=== PATIENT | female | born 1990 | race Hispanic/Latino ===

== ENCOUNTER 2019-06-20 01:43 | Day surgery (SDC) | payer OTHER ==
[2019-06-20 02:11] VITALS: BP 140/65; TEMP 98.4; BMI 34.2
--- NOTE | 2019-06-20 02:54 | PDOC.FPROB ---
FMR OB H&P: HPI - History of Present Illness Chief Complaint: occasional contractions and scant vaginal bleeding Indentification: 29yo G1 History of Present Illness: Ms. Fredo So is a 29yo who presents to L&D @ 37.5wks EGA by LMP/21.3wk sono (ERIKA 07/06/19) for occasional, irregular contractions and blood on the toilet paper when she wipes. These symptoms started roughly 6 hours ago. She denies trauma, significant vaginal bleeding, increase in vaginal discharge, dysuria, or loss of fluid. She endorses normal movement. 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 - Surgical History Sx History: None - Social History Social History: Denies alcohol, tobacco, or illicit drug use - Family History Family History: Non-contributory FMR OB H&P: Medications - Current Home Medications: Medication Instructions Recorded Confirmed Type Pnv No.95/Ferrous Fum/Folic AC 1 tab PO DAILY 06/20/19 06/20/19 History [ Vitamin Tablet] Allergies/Adverse Reactions: Allergies Allergy/AdvReac Type Severity Reaction Status Date / Time No Known Allergies Allergy Verified 06/20/19 02:13 FMR OB H&P: ROS - Review of Systems General: denies: fever/chills, weight/appetite/sleep changes, fatigue, recent trauma Eyes: denies: eye pain, vision changes, double vision ENT: denies: nasal congestion, rhinorrhea, sore throat Cardiovascular: denies: chest pain, palpitation, edema Respiratory: denies: cough, congestion Gastrointestinal: denies: abdominal pain, indigestion, nausea, vomiting, diarrhea, constipation Genitourinary (Female): denies: incontinence, dysuria, hematuria Musculoskeletal: denies: pain, stiffness Neurologic: denies: numbness, syncope, seizures Integumentary: denies: itching, rash, lesions FMR OB H&P: Vital Signs - Maternal Vital signs: Vital Signs - First Documented Temp Pulse Resp BP 98.4 F 67 20 140/65 06/20/19 02:04 06/20/19 02:04 06/20/19 02:04 06/20/19 02:04 - Heart Tones Baseline: 130 Variability: moderate Acceleration: present Deceleration: absent FMR OB H&P: Physical Exam - Physical Exam General: NAD, awake, alert and oriented HEENT: normocephalic and atraumatic, PERRLA, EOMI, MMM, conjunctiva clear, grossly normal vision, grossly normal hearing Neck: supple, trachea midline Heart: RRR, normal S1/S2, no murmurs/rubs/gallops, pulses present General: CTAB, no respiratory distress, good air movement, no rales/rhonchi, no wheezing Abdomen: soft, gravid, non-tender Musculoskeletal: pulses present, FROM in all four extremities Neurological: sensation to pain,touch and proprioception grossly normal Skin: no rash, good tugor, capillary refill <2 seconds Lymphatic: no unusual bruising or bleeding, no purpura, no petechia Psychiatric: intact recent and remote memory, good judgement and insight, normal mood and affect - Pelvic Exam SVE: @ 0220 closed, thick and high (-3) FMR OB H&P: A/P Disposition: Stable Discussion: Date/Time: 06/20/19 025 Term IUP, rule out labor - Irregular, infrequent contractions reported. Not having significant vaginal bleeding. - Cervical check @ 0220 closed, thick and high. - Will monitor FHT and contractions for 2 hours and recheck her cervix. - UA ordered to rule out urinary source of blood on toilet paper / UTI - Tylenol for mild discomfort with contractions/position. This H&P was discussed with Drs. Borjas and who agree with the above documentation and plan.
[2019-06-20] MEDS ORDERED: Acetaminophen 325 MG TAB PO SCH (03:00)
[2019-06-20 03:27] LABS: Bacteria/HPF None Seen HPF (None Seen); Bilirubin Negative (Negative); Blood, Urine Negative (Negative); Clarity Clear (Clear); Glucose, Urine (Dipstick) Normal (Negative); Leukocyte Negative Leu/uL (Negative); Nitrite Negative (Negative); Protein, Urine (Dipstick) 10 mg/dL (Neg-Trace); RBC/HPF 0-3 HPF (0-3); Squamous Epithelial 0-3 HPF (0-3); Urobilinogen Normal mg/dL (Less than 2); WBC/HPF 0-3 HPF (0-3)
[2019-06-20 03:30] LABS: Urine Culture Reflex No No
--- NOTE | 2019-06-20 04:24 | PDOC.BPN ---
- Brief Progress Note Cervical recheck at 0420 revealed no cervical change (closed, thick and high) No vaginal bleeding. Reactive NST, contractions every 8-10 minutes. D/c home with labor precautions.
== END 2019-06-20 04:32 | disposition home or self-care (01) ==
LOC: L&D/OP 01:43
PROVIDERS: ATTEND Student in an Organized Health Care Education/Training Program
DX: O46.93 Antepartum hemorrhage, unspecified, third trimester (principal); O47.1 False labor at or after 37 completed weeks of gestation; Z3A.37 37 weeks gestation of pregnancy
CPT/HCPCS: 51701; 81001; 99284

== ENCOUNTER 2019-06-23 19:34 | Inpatient (IN) | payer MEDICAID, OTHER, SELFPAY ==
[2019-06-23] MEDS ORDERED: hydrALAZINE 20 MG/ML VIAL SLOW IVP PRN (21:00)
[2019-06-23 22:49] LABS: #Lymphocytes 1.8 thou/uL (1.20-3.40); #Monocytes 0.7 thou/uL (0.11-0.59); #Neutrophils 10.3 thou/uL (1.40-6.50); %Basophils 0.1 % (0.0-1.0); %Eosinophils 0.3 % (0.0-10.0); %Lymphocytes 14.2 % (21.0-51.0); %Monocytes 5.2 % (0.0-10.0); %Neutrophils 80.3 % (42.0-75.0); Hemoglobin 13.2 g/dL (12.0-16.0); Mean Corpuscular HGB CONC 33.9 g/dL (32.0-36.0); Mean Corpuscular Hemoglobin 27.2 pg (27.0-31.0); Mean Platelet Volume 7.1 fL (7.4-10.4); Platelet Count 276 thou/uL (130-400); RBC Distribution Width 14.4 % (11.5-14.5); Red Blood Cell (RBC) Count 4.86 mill/uL (4.20-5.40); White Blood Cell (WBC) Count 12.9 thou/uL (4.8-10.8)
[2019-06-23] MEDS ORDERED: Butorphanol Tartrate 1 MG/ML VIAL ONE (22:52)
[2019-06-23 23:13] LABS: ALT (SGPT) 11 U/L (8-55); AST (SGOT) 23 U/L (5-34); Albumin 3.4 g/dL (3.5-5.0); Alkaline Phosphatase 237 U/L (40-110); Anion Gap 14 mmol/L (10-20); BUN (Urea Nitrogen) 7 mg/dL (7.0-18.7); Bilirubin, Total 0.4 mg/dL (0.2-1.2); Calc. Creatinine Clearance 0 mL/min (70-130); Calcium 9.7 mg/dL (7.8-10.44); Carbon Dioxide 19 mmol/L (22-29); Chloride 105 mmol/L (98-107); Estimated GFR-MDRD Greater than 90; Globulin 3.5 g/dL (2.4-3.5); Glucose 92 mg/dL (70-105); Potassium 3.8 mmol/L (3.5-5.1); Protein, Total 6.9 g/dL (6.0-8.3); Sodium 134 mmol/L (136-145); Uric Acid 4.6 mg/dL (2.6-6.0)
[2019-06-23] MEDS ORDERED: Butorphanol Tartrate 1 MG/ML VIAL SLOW IVP SCH (23:59)
--- NOTE | 2019-06-24 00:39 | PDOC.FPROB ---
FMR OB H&P: HPI - History of Present Illness Chief Complaint: Contractions Indentification: 29 yo female at 38.1 weeks by LMP c/w 21/3 wk sono History of Present Illness: Patient is a 29 yo female who presents to L&D with complaint of contractions occurring about every 5 minutes since 1730 today. States she has also had some vaginal blood and mucus on the toilet paper when she wipes. Denies loss of fluid. States still feeling baby move. Denies significant vaginal bleeding, trauma, abdominal pain, back pain, vision changes, n/v, diarrhea, chest pain, sob, headache, dizziness. Patient was seen on 06/20/19 at L&D triage for irregular contractions and vaginal spotting, was checked at that time and cervix was thick, closed, and high. She had a UA completed which was normal and was sent home. 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 - Surgical History Sx History: none - Social History Social History: Denies tobacco, EtOH, or other drug use - Family History Family History: Non-contributory FMR OB H&P: Medications - Current Home Medications: Medication Instructions Recorded Confirmed Type Pnv No.95/Ferrous Fum/Folic AC 1 tab PO DAILY 06/20/19 06/23/19 History [ Vitamin Tablet] Allergies/Adverse Reactions: Allergies Allergy/AdvReac Type Severity Reaction Status Date / Time No Known Allergies Allergy Verified 06/20/19 02:13 FMR OB H&P: ROS - Review of Systems General: denies: fever/chills, weight/appetite/sleep changes, fatigue Eyes: denies: vision changes, double vision ENT: denies: nasal congestion, sore throat Cardiovascular: denies: chest pain, palpitation, edema Respiratory: denies: cough, congestion, shortness of breath Gastrointestinal: denies: abdominal pain, nausea, vomiting, diarrhea Genitourinary (Female): reports: vaginal discharge, vaginal bleeding, contractions. denies: dysuria, vaginal pain, vaginal pressure Musculoskeletal: denies: pain, tenderness, decrease range of motion Neurologic: denies: numbness, weakness, loss of counsciousness, headache Integumentary: denies: itching, rash, lesions Psychological: denies: depression, anxiety FMR OB H&P: Vital Signs - Maternal Vital signs: BP 150/80, HR 75 - Heart Tones Baseline: 150 Variability: moderate Acceleration: present Deceleration: absent Category: category 1 [place] contractions every: 3-6 min FMR OB H&P: Physical Exam - Physical Exam General: NAD, awake, alert and oriented HEENT: normocephalic and atraumatic, EOMI, MMM, conjunctiva clear, grossly normal vision, grossly normal hearing Neck: supple Heart: RRR, normal S1/S2, no murmurs/rubs/gallops, pulses present, no edema General: CTAB, no respiratory distress, good air movement, no rales/rhonchi, no wheezing Abdomen: soft, non-tender, bowel sound present Musculoskeletal: normal gait and station, pulses present, FROM in all four extremities Neurological: sensation to pain,touch and proprioception grossly normal, no focal deficit Skin: no rash, good tugor Lymphatic: no unusual bruising or bleeding Psychiatric: intact recent and remote memory, normal mood and affect - Pelvic Exam SVE: 50/-1 FMR OB H&P: Results - Labs Lab results: Laboratory Results - last 24 hr 06/23/19 06/23/19 22:42 22:42 WBC 12.9 H RBC 4.86 Hgb 13.2 Hct 38.9 MCV 80.0 MCH 27.2 MCHC 33.9 RDW 14.4 Plt Count 276 MPV 7.1 L Neutrophils % 80.3 H Lymphocytes % 14.2 L Monocytes % 5.2 Eosinophils % 0.3 Basophils % 0.1 Neutrophils # 10.3 H Lymphocytes # 1.8 Monocytes # 0.7 H Eosinophils # 0.0 Basophils # 0.0 Sodium 134 L Potassium 3.8 Chloride 105 Carbon Dioxide 19 L Anion Gap 14 BUN 7 Creatinine 0.58 L Estimated GFR (MDRD) Greater than 90 Glucose 92 Uric Acid 4.6 Calcium 9.7 Total Bilirubin 0.4 AST 23 ALT 11 Alkaline Phosphatase 237 H Serum Total Protein 6.9 Albumin 3.4 L Globulin 3.5 Albumin/Globulin Ratio 1.0 L FMR OB H&P: A/P - Problem List (1) Third trimester Current Visit: Yes Status: Acute Code(s): Z34.93 - ENCNTR FOR SUPRVSN OF NORMAL PREG, UNSP, THIRD TRIMESTER (2) Elevated blood pressure reading without diagnosis of hypertension Current Visit: Yes Status: Acute Code(s): R03.0 - ELEVATED BLOOD-PRESSURE READING, W/O DIAGNOSIS OF HTN Disposition: 29 yo female presents with complaint of contractions is admitted for labor & workup of Pre-E: #Term IUP -rule out labor, will place on external monitor to watch FHT and contractions -currently showing contractions every 3-6 min on monitor -SVE /-1 (change from 06/20/19 exam of closed, thick, high) -Stadol x1 for pain #Elevated BP -previously normotensive at [facility] visits -initial BP 150/80, several subsequent pressures in 140s systolic -will check Pre-E labs including CBC, CMP, uric acid, urine protein & creatinine Dispo: Stable, will continue to monitor with next SVE in 2 hours. Addendum: SVE at 2200: still /-1, had 1 pressure 141/62 but rest of pressures normotensive. Labs pending. SVE at 0200: /-1, no severe range pressures, current BP 128/61, labs showed urine protein/Cr ratio of 0.8. Concern for continued elevated pressures and elevated urine protein/cr ratio of 0.8. Will plan to admit for Pre-E with continued monitoring of BP as well as monitoring of labor progression. Discussion: Date/Time: 06/24/19 0039 This H&P was discussed with Dr. Montes and Dr. Benoit who agree with the above documentation and plan. Addendum - Attending - Attending Attestation Date/Time: 06/24/19 3796 I personally evaluated the patient and discussed the management with the team on 11/24. I agree with the History, Examination, Assessment and Plan documented above with any addition or exceptions noted below. Begin pitocin if no change in 2 hours.
[2019-06-24 01:28] LABS: Creatinine, Urine 83.2 mg/dL (47-110)
[2019-06-24] MEDS ORDERED: Ondansetron PF 4 MG/2 ML Vial IVP PRN ×2 (01:51→09:40)
[2019-06-24] MEDS ORDERED: Acetaminophen 500 MG TAB PO PRN (01:51)
[2019-06-24] MEDS ORDERED: Promethazine HCl 25 MG/ML VIAL IM PRN ×2 (01:51→09:40)
[2019-06-24] MEDS ORDERED: hydrALAZINE 20 MG/ML VIAL SLOW IVP PRN (01:51)
[2019-06-24] MEDS: Lactated Ringer's 1,000 ML IV SCH ×4 (02:37→20:54)
[2019-06-24 02:38] LABS: Hemoglobin 12.6 g/dL (12.0-16.0); Mean Corpuscular HGB CONC 34.2 g/dL (32.0-36.0); Mean Corpuscular Hemoglobin 27.6 pg (27.0-31.0); Mean Corpuscular Volume 80.5 fL (78.0-98.0); Mean Platelet Volume 7.2 fL (7.4-10.4); Platelet Count 279 thou/uL (130-400); RBC Distribution Width 14.3 % (11.5-14.5); Red Blood Cell (RBC) Count 4.58 mill/uL (4.20-5.40); White Blood Cell (WBC) Count 12.4 thou/uL (4.8-10.8)
[2019-06-24 03:19] LABS: HBSAg Index 0.88 S/CO (0-0.99); Hep B Surf Ag Non-Reactive S/CO (NonReactive)
[2019-06-24] MEDS: Butorphanol Tartrate 1 MG/ML VIAL SLOW IVP PRN ×3 (03:30→08:06)
[2019-06-24 04:12] LABS: Syphilis Antibody Nonreactive (Nonreactive); Syphilis Antibody Index 0.05 S/CO (<1.00 Non-Reactive)
[2019-06-24] MEDS ORDERED: NS w/ Oxytocin 10 units 500 ML IV SCH (06:30)
[2019-06-24] MEDS ORDERED: Fentanyl 4 mcg/Bup 0.1% Cadd 100 ML ONE (08:57)
[2019-06-24] MEDS ORDERED: ePHEDrine/0.9% NaCl/PF SYRINGE 50 mg/10 ml SLOW IVP PRN (09:40)
[2019-06-24] MEDS ORDERED: diphenhydrAMINE 50 MG/ML VIAL IVP PRN (09:40)
[2019-06-24] MEDS ORDERED: Naloxone HCl 0.4 mg/ml Vial IVP PRN ×2 (09:40)
[2019-06-24] MEDS ORDERED: Lactated Ringer's 500 ML IV PRN (09:40)
[2019-06-24] MEDS ORDERED: Acetaminophen 325 MG TAB PO PRN (09:40)
[2019-06-24] MEDS ORDERED: Fentanyl 4 mcg/Bupivacaine 0.1% Cassette 100 ML EPIDURAL SCH (09:45)
[2019-06-24] MEDS ORDERED: Communication Order-Pharmacy FS SCH (09:45)
[2019-06-24] MEDS ORDERED: Lidocaine 1% (PF) 30 ML VIAL ONE (10:44)
[2019-06-24] MEDS ORDERED: NS / Oxytocin 40 units/1000ml 1,000 ML ONE ×2 (10:44→16:44)
[2019-06-24] MEDS ORDERED: Bupivacaine 0.25% HCL 30 ML VIAL ONE (11:20)
--- NOTE | 2019-06-24 12:03 | PDOC.LDPN ---
Labor & Delivery Progress Note - Subjective Subjective: comfortable, vaginal pressure - Objective Vital signs reviewed and normal: yes General: NAD, resting Uterine fundus: non tender SVE: 1145 Dilation: 9.5 Effacement: 100% Station: 1+ FHT: category 1, variability present (FHR 150) [place] contractions every: 2 minutes, AROM: clear fluid - Assessment (1) Pre-eclampsia Code(s): O14.90 - UNSPECIFIED PRE-ECLAMPSIA, UNSPECIFIED TRIMESTER Current Visit: Yes Status: Acute (2) Third trimester Code(s): Z34.93 - ENCNTR FOR SUPRVSN OF NORMAL PREG, UNSP, THIRD TRIMESTER Current Visit: Yes Status: Acute Plan: continue plan of care, pitocin for augmentation -: 29 yo @ 38.2 weeks female came in for contractions and found to have Pre-E without severe features. Labor was then induced #Term IUP -Labor induced with pitocin -Cat 1 strip. FHR 150. Ctx every 2 minutes -SVE 9.5/100/1. AROM performed. Clear fluid noted. -Will let patient labor down and prepare for delivery #Pre-E without severe features -previously normotensive at [facility] visits -Ur/Cr ratio .8. All other pre-E labs normal -BP have ranged from 130-140. No severe range pressures noted. Has had a few pressures in 150's. -will check Pre-E labs including CBC, CMP, uric acid, urine protein & creatinine Addendum - Attending - Attending Attestation Date/Time: 06/24/19 2329 I personally evaluated the patient and discussed the management with Dr. Jefferson I agree with the History, Examination, Assessment and Plan documented above with any addition or exceptions noted below. no severe range pressures or severe features. Pit for augmentation. Expectant managment.
--- NOTE | 2019-06-24 12:10 | PDOC.LDPN ---
Labor & Delivery Progress Note - Subjective Subjective: painful contractions, vaginal pressure - Objective Vital signs reviewed and normal: yes General: NAD, resting, breathing through contractions Uterine fundus: non tender SVE: 10:00 Dilation: 8 Effacement: 100% Station: 1+ FHT: category 1 (Ctx every 2 minutes. FHR 150. Accells noted), variability present [place] contractions every: 2 minutes - Assessment (1) Pre-eclampsia Code(s): O14.90 - UNSPECIFIED PRE-ECLAMPSIA, UNSPECIFIED TRIMESTER Current Visit: Yes Status: Acute (2) Third trimester Code(s): Z34.93 - ENCNTR FOR SUPRVSN OF NORMAL PREG, UNSP, THIRD TRIMESTER Current Visit: Yes Status: Acute Plan: continue plan of care, pitocin for augmentation -: 29 yo @ 38.2 weeks female came in for contractions and found to have Pre-E without severe features. Labor was then induced #Term IUP -Labor induced with pitocin -Cat 1 strip. FHR 150. Ctx every 2 minutes -SVE 8/100/1. bag intact. Pt feeling some pain. Has epidural in place. Will continue to adjust. -Will continue to monitor and check with pain changes or every q2hrs #Pre-E without severe features -previously normotensive at [facility] visits -Ur/Cr ratio .8. All other pre-E labs normal -BP have ranged from 130-140. No severe range pressures noted. Has had a few pressures in 150's.
--- NOTE | 2019-06-24 15:46 | PDOC.OPDEL ---
OB Operative/Delivery Note Delivery Dr/Surgeon: Dr. Jones Assist: Dr. Banuelos, attending Dr. Watkins Pre-Delivery Diagnosis: medically indicated induction Procedure/Post Delivery Dx: spontaneous vaginal delivery Weeks gestation: 38 (2 weeks) Anesthesia: epidural - Findings A Sex: male - 1 min: 8 - 5 min: 9 - Additional Findings/Plan Placenta delivered: spontaneous Repaired Obstetrical Laceration: 2nd degree (and periurethral) Estimated blood loss: 155 Compilations/Other Findings: Delivering Physician: Dr. Jasbir Jones and Dr. Cady Banuelos Attending: Dr. Eliazar Watkins Procedure: Spontaneous Vaginal Delivery Anesthesia: epidural EBL: 155 ml Pre-op Diagnosis: 1. Term intrauterine 2. IOL for Pre-Eclampsia Post-op Diagnosis: 1. Term intrauterine , delivered 2. same as above Indications: A 29y/o female presents to L&D for induction due to pre- eclampsia Delivery Note: This is 29yo F @ 38.2 wks who delivered a viable M at 1439 on 06/24/19. Following an uneventful intrapartum course, a vigorous male was delivered over an intact perineum in the occipitoanterior position. Anterior shoulder and then remainder of the body delivered. No nuchal cord. The head was held down and mouth and nares were bulb suctioned. Cord clamped after delayed cord clamping and cut and cord blood collected. Placenta delivered intact in the [place]/Larios presentation with a 3 vessel cord noted. Fundal massage was performed and the fundus was firm. The cervix and vagina were inspected and a periurethral and 2nd degree perineal lacerations were noted and repaired with in the usual fashion with good approximation. went to nursery in good condition for routine care. Apgars were 8/9 at 1 & 5 minutes, respectively. Patient tolerated delivery well and went to after routine recovery/care. Post delivery plan: routine recovery Addendum - Attending - Attending Attestation Date/Time: 06/24/19 5862 I personally evaluated the patient and discussed the management with Dr. Jones I agree with the History, Examination, Assessment and Plan documented above with any addition or exceptions noted below. I was present for the entire delivery. presented with contractions. Found to have Pre-eclampsia w/o severe features. Labor augmented and on 06/24. Vigorous infant at time of delivery. 2nd degree perineal lac and right periuretheral. Both repaired in the usual fashion. QBL 155mL. Routine care for mom with close BP monitoring. If severe pressures occur PP, will initiate magnesium therapy.
[2019-06-24] MEDS ORDERED: Milk Of Magnesia 30 ML UDCUP PO PRN (16:35)
[2019-06-24] MEDS ORDERED: Measles/Mumps/Rubella 10 MCG/0.5 ML VIAL SC ONE (16:35)
[2019-06-24] MEDS ORDERED: NS / Oxytocin 40 units/1000ml 1,000 ML IV SCH (16:35)
[2019-06-24] MEDS ORDERED: Benzocaine-Menthol 82.5 ML CAN TOP PRN (16:35)
[2019-06-24] MEDS ORDERED: Adacel (T-DAP) 0.5 ML SYRINGE IM ONE (16:35)
[2019-06-24] MEDS ORDERED: Bisacodyl 10 MG SUPP PR PRN (16:35)
[2019-06-24] MEDS ORDERED: Preparation H Ointment 28 GM TUBE PR PRN (16:35)
[2019-06-24] MEDS: Ferrous Sulfate 325 MG TAB PO SCH (17:50)
[2019-06-24] MEDS: Docusate Calcium (SURFAK) 240 MG CAP PO SCH (21:33)
[2019-06-24] MEDS: Ibuprofen 800 MG TAB PO SCH (21:33)
[2019-06-25 04:46] LABS: #Eosinphils 0.1 thou/uL (0.0-0.7); #Lymphocytes 2.3 thou/uL (1.20-3.40); #Monocytes 1.1 thou/uL (0.11-0.59); #Neutrophils 9.5 thou/uL (1.40-6.50); %Basophils 0.2 % (0.0-1.0); %Eosinophils 0.5 % (0.0-10.0); %Lymphocytes 17.7 % (21.0-51.0); %Monocytes 8.4 % (0.0-10.0); %Neutrophils 73.3 % (42.0-75.0); Hemoglobin 10.2 g/dL (12.0-16.0); Mean Corpuscular HGB CONC 33.1 g/dL (32.0-36.0); Mean Corpuscular Volume 81.6 fL (78.0-98.0); Mean Platelet Volume 7.1 fL (7.4-10.4); Platelet Count 242 thou/uL (130-400); RBC Distribution Width 14.6 % (11.5-14.5); Red Blood Cell (RBC) Count 3.78 mill/uL (4.20-5.40)
[2019-06-25] MEDS: Ibuprofen 800 MG TAB PO SCH ×3 (05:49→21:27)
--- NOTE | 2019-06-25 08:00 | PDOC.PP ---
Post Progress Note Post Day #: 1 Subjective: Pt with 100.4 fever, denies any sxs, no abd tenderness, no dysuria PO intake tolerated: yes Flatus: yes Ambulation: yes Vital Signs (12 hours) Temp Pulse Resp BP Pulse Ox 06/25/19 03:36 97.7 F 77 12 90/52 L 98 06/24/19 23:29 98.6 F 80 14 91/45 L 96 06/24/19 20:12 100.4 F H 89 20 101/51 L 96 Weight Weight 79.379 kg - Physical Examination General: NAD Cardiovascular: no m/r/g, RRR Respiratory: clear to auscultation bilaterally Abdominal: + bowel sounds Extremities: negative homans (B) Neurological: no gross focal deficits Psychiatric: A&Ox3, normal affect Result Diagrams: 06/25/19 04:31 06/23/19 22:42 Additional Labs: Post Labs Blood Type O POSITIVE 06/24/19 02:28 Hep Bs Antigen Non-Reactive S/CO (NonReactive) 06/24/19 02:28 (1) care following vaginal delivery Code(s): Z39.2 - ENCOUNTER FOR ROUTINE FOLLOW-UP Status: Acute (2) Anemia Code(s): D64.9 - ANEMIA, UNSPECIFIED Status: Acute (3) Pre-eclampsia Code(s): O14.90 - UNSPECIFIED PRE-ECLAMPSIA, UNSPECIFIED TRIMESTER Status: Acute - Assessment/Plan 1. S/P Term , day #1 -Doing well, breast/bottle feeding -Pain controlled -IUD for contraception 2. Anemia -12-> 10, AVSS -Likely from blood loss -Continue PO iron 3. PreE in -BPs WNL -Uriah sxs -Outpt f/u Dispo: antipicated d/c tomorrow Addendum - Attending - Attending Attestation Date/Time: 06/25/19 1205 I personally evaluated the patient and discussed the management with Dr. Banuelos I agree with the History, Examination, Assessment and Plan documented above with any addition or exceptions noted below. Single isolated temp overnight but otherwise doing well. No abx at this time. Will monitor closely. Encouraged breast feeding. healthcare economics consultant to see patient. Likely d/c tomorrow.
[2019-06-25] MEDS: Docusate Calcium (SURFAK) 240 MG CAP PO SCH ×2 (08:21→21:28)
[2019-06-25] MEDS: Ferrous Sulfate 325 MG TAB PO SCH ×2 (08:21→16:15)
[2019-06-25] MEDS: Prenatal Vitamin 1 TAB PO SCH (08:21)
[2019-06-25] MEDS: Lactated Ringer's 1,000 ML IV SCH ×2 (08:24→16:16)
[2019-06-26] MEDS: Lactated Ringer's 1,000 ML IV SCH ×3 (03:44→18:16)
[2019-06-26] MEDS: Ibuprofen 800 MG TAB PO SCH ×2 (06:21→14:12)
[2019-06-26 08:21] VITALS: BP 110/66; TEMP 98.6
--- NOTE | 2019-06-26 08:32 | PDOC.PP ---
Post Progress Note Post Day #: 3 Subjective: NAEO. Doing well, controlled pain. Would like to stay until baby discharged. PO intake tolerated: yes Flatus: yes Ambulation: yes Vital Signs (12 hours) Temp Pulse Resp BP Pulse Ox 06/26/19 07:05 98.6 F 66 16 110/66 98 Weight Weight 79.379 kg - Physical Examination General: NAD Cardiovascular: no m/r/g, RRR Respiratory: clear to auscultation bilaterally, non-labored breathing Abdominal: + bowel sounds, appropriately TTP Psychiatric: A&Ox3, normal affect Result Diagrams: 06/25/19 04:31 06/23/19 22:42 Additional Labs: Post Labs Blood Type O POSITIVE 06/24/19 02:28 Hep Bs Antigen Non-Reactive S/CO (NonReactive) 06/24/19 02:28 (1) care following vaginal delivery Code(s): Z39.2 - ENCOUNTER FOR ROUTINE FOLLOW-UP Status: Acute (2) Anemia Code(s): D64.9 - ANEMIA, UNSPECIFIED Status: Acute (3) Pre-eclampsia Code(s): O14.90 - UNSPECIFIED PRE-ECLAMPSIA, UNSPECIFIED TRIMESTER Status: Acute - Assessment/Plan 1. S/P Term , day #2 -Doing well, breast/bottle feeding -Pain controlled -IUD for contraception 2. Anemia -12-> 10, AVSS -Likely from blood loss -Continue PO iron 3. PreE in -BPs WNL -Uriah sxs -Outpt f/u Dispo: antipicated d/c pending baby bilirubin today, if not can bed & breakfast Addendum - Attending - Attending Attestation Date/Time: 06/26/19 1131 I personally evaluated the patient and discussed the management with Dr. Banuelos I agree with the History, Examination, Assessment and Plan documented above with any addition or exceptions noted below. Doing well. d/c vs B&B
[2019-06-26] MEDS: Ferrous Sulfate 325 MG TAB PO SCH ×2 (09:47→18:16)
[2019-06-26] MEDS: Prenatal Vitamin 1 TAB PO SCH (09:48)
[2019-06-26] MEDS: Docusate Calcium (SURFAK) 240 MG CAP PO SCH (09:48)
== END 2019-06-26 18:52 | disposition home or self-care (01) | DRG 807 ==
LOC: L&D/OP 19:34 → L&D 06-24 01:50 → 3SW 06-24 16:50
PROVIDERS: ADMIT Obstetrics & Gynecology; ATTEND Obstetrics & Gynecology
PROC: 10E0XZZ Delivery of Products of Conception, External Approach (ICD-10-PCS; principal; 2019-06-24)
PROC: 0KQM0ZZ Repair Perineum Muscle, Open Approach (ICD-10-PCS; 2019-06-24)
PROC: 10907ZC Drainage of Amniotic Fluid, Therapeutic from Products of Conception, Via Natural or Artificial Opening (ICD-10-PCS; 2019-06-24)
PROC: 3E0P7VZ Introduction of Hormone into Female Reproductive, Via Natural or Artificial Opening (ICD-10-PCS; 2019-06-24)
PROC: 3E033VJ Introduction of Other Hormone into Peripheral Vein, Percutaneous Approach (ICD-10-PCS; 2019-06-24)
PROC: 0UQMXZZ Repair Vulva, External Approach (ICD-10-PCS; 2019-06-24)
DX: O14.04 Mild to moderate pre-eclampsia, complicating childbirth (principal); Z37.0 Single live birth; O70.1 Second degree perineal laceration during delivery; O71.82 Other specified trauma to perineum and vulva; Z3A.38 38 weeks gestation of pregnancy; O90.81 Anemia of the puerperium; D64.9 Anemia, unspecified; O86.4 Pyrexia of unknown origin following delivery
CPT/HCPCS: 36415; 51702; 80053; 82570; 84156; 84550; 85025; 85027; 86780; 86850; 86900; 86901; 87340; 99285; J0595; J2001; J2590; S0020

== ENCOUNTER 2023-06-19 12:02 | Outpatient (CLI) | payer OTHER | END 2023-06-19 12:03 | disposition home or self-care (01) | LOC: BICULT 12:02 | PROVIDERS: ATTEND Family Medicine | DX: Z34.82 Encounter for supervision of other normal pregnancy, second trimester (principal); Z3A.21 21 weeks gestation of pregnancy | CPT/HCPCS: 76805 ==